=== PATIENT | female | born 1995 | race Two or more races ===

== ENCOUNTER 2022-04-14 08:57 | Emergency (ER) | payer OTHER ==
[~2022-04-14] VITALS: Ht 162.6 cm; Wt 97.5 kg
[2022-04-14 09:01] VITALS: BP 132/82
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
[2022-04-14] MEDS ORDERED: ACETAMINOPHEN ES 500 MG TABLET PO ONE (09:30)
[2022-04-14] MEDS ORDERED: ACETAMINOPHEN ES 500 MG TABLET ONE (09:33)
--- NOTE | 2022-04-14 10:00 | NUR ---
URINE COLLECTED AND SENT TO LAB
--- NOTE | 2022-04-14 12:03 | NUR ---
Patient discharged to home in stable condition. Written and verbal after care instructions given. Patient verbalizes understanding of instruction.
== END 2022-04-14 12:03 | disposition home or self-care (01) ==
LOC: ER 08:58
DX: R07.89 Other chest pain (principal)
CPT/HCPCS: 71045-TC; 84703-TC